=== PATIENT | female | born 1945 | race Caucasian/White ===

== ENCOUNTER → 2018-03-10 | Day surgery (SDC) | payer OTHER ==
[~2018-03-10] VITALS: Ht 170.2 cm; Wt 56.7 kg
[~2018-03-10] MED LIST: AMOX-CLAV 500-1 EACH PO; ASPIRIN EC81 M1 PO; AUGMENTIN 875-1 EACH PO; CENTRUM SILVER1 TA1 PO; CLINDAMYCIN HC300 M1 PO; DUREZOL5 ML OD; HYDROXYZINE HCL25 M3 PO; HYDROXYZINE HCL25 MG PO; MEDROL4 M2 PO; MIMVEY 1 MG-0.51 TAB PO; MULTIVITAMINS1 EAC9 PO; NASONEX17 GM NASB; OFLOXACIN5 ML OD; POLYETHYLENE G255 GM PO; POLYMYXIN B-TMP10 ML OPH; PREDNISONE20 M1 PO; PROAIR HFA8.5 GM INH; TRIPLE ANTIBIO1 EACH TOP; VITAMIN C500 M6 PO; VITAMIN D31000 UNI2 PO; ZOFRAN ODT4 M1 SL
--- NOTE | 2018-03-10 07:36 | Operative Report ---
Operative/Inv Procedure Report Surgery Date: 03/10/18 Name of Procedure: Left shoulder arthroscopy, extensive debridement, biceps tenotomy, subacromial decompression, arthroscopic rotator cuff repair, Pre-Operative Diagnosis: Left shoulder rotator cuff tear Post-Operative Diagnosis: Left shoulder rotator cuff tear Estimated Blood Loss: scant Surgeon/Physician Practice Administrator: Stan COLES,AKANKSHA Solis Anesthesia: laryngeal mask airway, block Complications: None Condition: Stable to PACU Operative Indication: This is a 72-year-old female with left shoulder pain. MRI showed a full- thickness rotator cuff tear.Risks and benefits of the procedure were discussed with the patient at length. Risks include but are not limited to nerve damage, muscle damage, infection, blood loss, blood clots, pulmonary embolus, and even . The patient agreed to the above risks and elected to proceed with surgery. Operative/Procedure Note Note: The patient was taken to the operating room and placed in the lateral decubitus position with the operative side up after anesthesia was induced. The upper extremity was prepped and draped in the normal sterile fashion. A timeout was performed prior to incision. The site marking was visualized prior to incision. IV antibiotics were given prior to incision. After the upper extremity was prepped and draped a spinal needle was used to insufflate the shoulder joint with saline. An 11 blade was used to incise the skin for the posterior portal placement. The cannula was then placed. The camera was inserted. An anterior portal was established just proximal and lateral to the coracoid with a spinal needle and an 11 blade. The diagnostic arthroscopy was then performed which showed the above findings. A wand was used to perform a biceps tenotomy. A shaver was used to debride the anterior as well as superior labrum. The wand was used to further stabilize labrum. Hansa and used to perform a chondroplasty of the humeral head. The shaver was then used to debride the rotator cuff footprint. Next the subacromial space was entered through the posterior portal. A lateral portal was established with a spinal needle and an 11 blade. A blunt probe was inserted through the lateral portal. Next the shaver was inserted and a subacromial bursectomy was performed. Any bleeding vessels were identified and cauterized. The shaver was used to debride any bursal tissue on the undersurface of the acromion and surrounding the humeral head. The coracoacromial ligament was taken down with a wand. Care was taken to protect the rotator cuff tissue and only take bursal tissue. A wand was then used to further take down the soft tissue on the undersurface of the acromion. A bur was then inserted and the acromioplasty was then begun starting at the anterolateral edge of the acromion. This was extended down to the level of the acromioclavicular joint. This was then tapered further posteriorly. An 8 mm PassPort cannula was placed through the lateral portal site. A 6 mm PassPort cannula was placed through the anterior portal. An accessory portal was made just off of the lateral border the acromion with a spinal needle and an 11 blade. An 8 mm PassPort cannula was placed through this. The bur was used to prepare the rotator cuff footprint back to a healthy bed of bleeding bone for later rotator cuff repair. Any bursal adhesions superior to the rotator cuff were taken amador with a shaver. A tap was used and a 5.5 mm helicoil anchor was placed just lateral to the articular surface in the rotator cuff footprint. An expressew needle was then used to shuttle the sutures from front to back. The medial row was tied down with a locking knot and several half hitches. The sutures were then crisscrossed over the top and fixed with 2 lateral row anchors. An anchor was placed posterior to the bicipital groove. A second anchor was placed further posterior. This afforded excellent compression of the rotator cuff. The excess suture was then cut. A 1/8 inch Hemovac drain was placed through the posterior portal. All instruments were removed and the shoulder was copiously irrigated. The portal sites were closed with 3-0 nylon suture in a simple interrupted fashion. A dry sterile dressing was placed. A sling was applied. The patient was transferred to PACU in stable condition. Findings: Full-thickness tear of the supraspinatus tendon and partial thickness undersurface tearing of the infraspinatus. Subscapularis tendon intact. Degenerative tearing of the anterior superior labrum. Posterior labrum intact. Grade 2 chondral changes of the superior humeral head. Glenoid articular cartilage with grade 1 chondral changes. No loose bodies noted. Partial thickness tearing of the biceps tendon involving 75% of the tendon. Subacromial hook present. Extensive subacromial bursitis present.
== END ==
LOC: STS 03:41
DX: M75.122 Complete rotator cuff tear or rupture of left shoulder, not specified as traumatic (principal); M75.52 Bursitis of left shoulder
CPT/HCPCS: C9290; J0171; J0690; J2250